=== PATIENT | male | born 1975 ===

== ENCOUNTER 2023-05-29 10:52 | Outpatient (AMB) | payer BC, SELFPAY ==
--- NOTE | 2023-05-29 11:22 | AM.OFFWIN_ITS ---
Intake Vital Signs 05/29/23 11:24 Height 5 ft 6 in Weight 178 lb 2 oz BMI 28.7 BP 114/78 Blood Pressure Location Rt brachial Position Sitting Pulse 78 Pulse Source Pulse Oximeter Temp 98.3 F Temp Source Oral Pulse Oximetry (%) 98 Oxygen Delivery Method Room Air Intake Visit Reasons: ? Sinus infection Intake Note: Pt presents to the office today for c/o sinus infection symptoms. Pt states she has a runny nose, head pressure, and some ear pain X3 weeks. Allergies No Known Allergies Allergy (Verified 05/29/23 12:00) HPI HPI Comments History of Present Illness Details sick with flu like sx off and on for 4 weeks today has sinus pain, facial pressure, headache, cough, runny nose, sneezing all the time Denies fever. Used Advil, flonase w short lived relief [facility] Social History (Updated 05/29/23 @ 11:26 by Brenda Sharma MA) Household Members: Spouse Alcohol intake: current Alcohol intake frequency: a few times a week Patient Tobacco Use Status: Never used Tobacco Substance Use Type: Marijuana Review of Systems Const All systems reviewed & are unremarkable except as noted in HPI and below Physical Exam Vital Signs: Last Vital Signs Temp 98.3 F 05/29/23 11:24 Pulse 78 05/29/23 11:24 BP 114/78 05/29/23 11:24 Pulse Ox 98 05/29/23 11:24 Oxygen Delivery Method Room Air 05/29/23 11:24 BMI result Body Mass Index 28.7 Const Other: Awake alert NAD Sclera and conjunctiva clear bilat TM intact bilat with effusions bilat worse on the right Nares with mucoid discharge bilat, turbinates within normal limits, frontal and maxillary sinuses tender with palpation MMM, pharynx WNL RRR LS CTAB Assessment & Plan Assessment & Plan (1) Acute bacterial sinusitis: Code(s): J01.90 - Acute sinusitis, unspecified; B96.89 - Other specified bacterial agents as the cause of diseases classified elsewhere Plan: . Medications: New amoxicillin-pot clavulanate 875-125 mg 1 tab PO BID 14 tabs 0RF 7 days Coding Level of Care Code Est Pt Level 3 (67683) Diagnoses Acute bacterial sinusitis J01.90; B96.89
[2023-05-29 11:24] VITALS: BP 114/78; PULSE 78; TEMP 36.8; O2SAT 98; BMI 28.7
== END 2023-05-29 12:15 | disposition home or self-care (01) ==
PROVIDERS: Visit Provider Nurse Practitioner Family
DX: J01.90 Acute sinusitis, unspecified (principal); B96.89 Other specified bacterial agents as the cause of diseases classified elsewhere
CPT/HCPCS: 99213